=== PATIENT | female | born 1970 ===

== ENCOUNTER 2018-07-01 16:34 | Emergency (ER) | payer OTHER ==
[2018-07-01 17:00] VITALS: BP 121/82; PULSE 81; RESP 18; TEMP 97.8; O2SAT 100
[2018-07-01] MEDS ORDERED: Tetanus/Diphtheria Toxoids 0.5 ml Syringe IM ONE ×2 (17:26→19:07)
[2018-07-01] MEDS ORDERED: Lidocaine 1% Inj (20ml) INFIL STA (17:27)
[2018-07-01] MEDS ORDERED: Lidocaine Hydrochloride 5 ML INJ ONE (18:07)
[2018-07-01] MEDS ORDERED: Bacitracin 500 Units/gm Oint Foilpak UD ONE (18:30)
--- NOTE | 2018-07-01 18:47 | C.PDOC ---
History Of Present Illness 48 year old female presents to the ED for evaluation of a laceration to her left hand which she sustained at 1200 today. Patient states she was at work when she accidentally cut herself with a can. Patient states she is not up-to-date with Tetanus immunization. Patient denies sensory changes at this time. Time Seen by Provider: 07/01/18 17:16 Chief Complaint (Nursing): Abnormal Skin Integrity History Per: Patient History/Exam Limitations: no limitations Onset/Duration Of Symptoms: Hrs Current Symptoms Are (Timing): Still Present Location Of Injury: Left: Hand Quality Of Symptoms: Painful Additional History Per: Patient Past Medical History Reviewed: Historical Data, Nursing Documentation, Vital Signs Vital Signs: Last Vital Signs Temp 97.8 F 07/01/18 16:56 Pulse 81 07/01/18 16:56 Resp 18 07/01/18 16:56 BP 121/82 07/01/18 16:56 Pulse Ox 100 07/01/18 16:56 - Medical History PMH: No Chronic Diseases Surgical History: No Surg Hx Family History: States: Unknown Family Hx - Social History Hx Alcohol Use: No Hx Substance Use: No - Immunization History Hx Tetanus Toxoid Vaccination: No Hx Influenza Vaccination: No Hx Pneumococcal Vaccination: No Review Of Systems Skin: Positive for: Other (laceration to left hand) Neurological: Negative for: Other (sensory changes ) Physical Exam - Physical Exam Appears: Non-toxic, No Acute Distress Skin: Normal Color, Warm, Dry, Other (1.5cm laceration to interdigitary space between left first and second digits. no active bleeding ) Extremity: Normal ROM (all digits of left hand ), Capillary Refill (less than 2 seconds ) Neurological/Psych: Oriented x3, Normal Speech, Normal Cognition, Normal Sensation ED Course And Treatment O2 Sat by Pulse Oximetry: 100 Progress Note: Patient given Tylenol PO and Tetanus IM. On reassessment, patient is resting comfortably, showing no signs of distress and is stable for discharge. Patient is given wound care instructions and advised to return for suture removal in 7 days. Laceration - Laceration Repair LEFT HAND Wound Length (In cm): 1.5 Description Of Wound: Linear Wound Cleansed With: Betadine, Sterile Saline Anesthesia: Lidocaine 1% (APPROX 3ML) Wound Examination: Irrigated With Saline, No FB With Wound Exploration Wound Closure: Suture (THREE 2.0 ETHILON SIMPLE INTERRUPTED) Suture Technique And Material Used: Interrupted, Nylon Wound Complexity: Simple Disposition Counseled Patient/Family Regarding: Diagnosis, Need For Followup - Disposition Referrals: [facility] [Outside] Disposition: HOME/ ROUTINE Disposition Time: 18:40 Condition: STABLE Additional Instructions: SUTURE REMOVAL IN 7 DAYS KEEP AREA COVERED, CLEAN AND DRY FOR 24 HOURS RETURN TO ER IF YOU DEVELOP FEVER, BLEEDING DISCHARGE OR OTHER CONCERNING SYMPTOMS Instructions: Laceration Repair With Stitches (DC) Forms: [employer] (Thai) Print Language: AZERI - Clinical Impression Clinical Impression: Laceration of left hand - Scribe Statement The provider has reviewed the documentation as recorded by the Scribe (Noris Irizarry) Provider Attestation: All medical record entries made by the Scribe were at my direction and personally dictated by me. I have reviewed the chart and agree that the record accurately reflects my personal performance of the history, physical exam, medical decision making, and the department course for this patient. I have also personally directed, reviewed, and agree with the discharge instructions and disposition.
== END 2018-07-01 19:20 | disposition home or self-care (01) ==
LOC: C.ER 16:34
DX: S61.412A Laceration without foreign body of left hand, initial encounter (principal); W26.8XXA Contact with other sharp object(s), not elsewhere classified, initial encounter; Z23 Encounter for immunization

== ENCOUNTER 2018-07-12 17:13 | Emergency (ER) | payer SELFPAY, OTHER | END 2018-07-12 17:55 | disposition home or self-care (01) | LOC: C.ER 17:13 ==

== ENCOUNTER 2018-08-19 18:26 | Emergency (ER) | payer SELFPAY ==
[2018-08-19 18:34] VITALS: BMI 22.4
[2018-08-19 18:37] VITALS: BP 134/84; PULSE 76; TEMP 98.2; O2SAT 99
--- NOTE | 2018-08-19 18:55 | C.PDOC ---
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 Patient was carrying a box when she missed a step and fell down approx 5 stairs, hitting the back of her head. Denies any LOC. Patient is now complaining of left forearm pain, neck pain, and left-sided facial pain. She denies any dizziness, severe headache, visual changes, nausea, vomiting, chest pain, SOB, or back pain. No other injury. She denies hx of blood thinner use. - HPI Time Seen by Provider: 08/19/18 18:47 Chief Complaint (Nursing): Trauma History Per: Patient History/Exam Limitations: no limitations Onset/Duration Of Symptoms: Mins Injury Occurred (Timing): Just Before Arrival Location Of Injury: Left: Face, Forearm, Posterior: Neck Severity: Moderate Additional History Per: EMS, Family Past Medical History Reviewed: Historical Data, Nursing Documentation, Vital Signs Vital Signs: Last Vital Signs Temp 98.2 F 08/19/18 18:34 Pulse 76 08/19/18 18:34 Resp 18 08/19/18 18:34 BP 134/84 08/19/18 18:34 Pulse Ox 99 08/19/18 18:34 - Medical History PMH: No Chronic Diseases Surgical History: No Surg Hx Family History: States: Unknown Family Hx - Social History Hx Tobacco Use: No Hx Alcohol Use: No Hx Substance Use: No - Immunization History Hx Tetanus Toxoid Vaccination: No Hx Influenza Vaccination: No Hx Pneumococcal Vaccination: No Review Of Systems Except As Marked, All Systems Reviewed And Found Negative. Constitutional: Negative for: Fever Eyes: Negative for: Vision Change ENT: Negative for: Nose Pain Cardiovascular: Negative for: Chest Pain, Palpitations, Light Headedness Respiratory: Negative for: Cough, Shortness of Breath, Hemoptysis Gastrointestinal: Negative for: Nausea, Vomiting, Abdominal Pain Musculoskeletal: Positive for: Neck Pain, Arm Pain (Left forearm), Other (Left facial pain). Negative for: Shoulder Pain, Back Pain, Leg Pain Skin: Positive for: Bruising. Negative for: Lesions Neurological: Negative for: Weakness, Numbness, Confusion, Headache, Dizziness Physical Exam - Physical Exam Appears: Non-toxic, No Acute Distress Skin: Warm, Dry, No Rash Head: Normacephalic, Tenderness (mild over left zygoma), Swelling (mild over left zygoma), No Laceration Eye(s): bilateral: Normal Inspection, PERRL, EOMI Nose: Normal Oral Mucosa: Moist Neck: Normal ROM, Trachea Midline, Midline Cervical Tenderness (mild c-spine tenderness), Paracervical Tenderness (left), No Step Off Deformity, Supple Chest: Symmetrical, No Ecchymosis Cardiovascular: Rhythm Regular, No Murmur Respiratory: Normal Breath Sounds, No Accessory Muscle Use, Other (No respiratory distress) Gastrointestinal/Abdominal: Soft, No Tenderness, No Distention Back: Normal Inspection, No Vertebral Tenderness, No Decreased ROM, No Paraspinal Tenderness, No Other (no bruising) Extremity: No Normal ROM (unable to pronate or supinate left arm), Tenderness (over dorsal medial left forearm), Capillary Refill (<2s), Deformity (+ obvious deformity to left forearm), Swelling (left mid forearm), Other (Ecchymosis to left forearm, over dorsal medial aspect; Neurovascularly intact; No lacerations or abrasions to extremities) Pulses: Left Radial: Normal, Right Radial: Normal Neurological/Psych: Oriented x3, Normal Speech, Normal Cognition, Normal Cranial Nerves (2-12 grossly intact), Normal Motor, Normal Sensation Gait: Steady ED Course And Treatment - Laboratory Results Urine POC: Negative O2 Sat by Pulse Oximetry: 99 (RA) Pulse Ox Interpretation: Normal - Other Rad L Elbow X-Ray X-Ray: Read By Radiologist Interpretation: Name:DAVID GALLEGOS Exam Date:Aug 19, 2018 7:03:47 PM Cary JACOME Modality Type:CR\SD\NV. Description:CR - ELBOW COMPLETE 3 VIEWS. Gender:F Laterality:Left. :71 Referring Physician:HORACE JOSEPH PA-C. EXAM: CR left elbow, 3 View. CLINICAL HISTORY: PATIENT FELL. COMPARISON: None provided. FINDINGS: BONES: No acute fracture or aggressive appearing osseous lesion. JOINTS: The joint spaces appear within normal limits. No dislocation. No radiographic evidence of a joint effusion. SOFT TISSUES: The soft tissues are unremarkable. IMPRESSION: No acute osseous abnormality. . Electronically signed on Aug 19, 2018 8:11:13 PM EST by: Andrew Chanel M.D., ISABELA Certified By ABR & CBCCT. Fellowship Trained MRI and CT Specialist L Wrist X-Ray X-Ray: Read By Radiologist Interpretation: Name:DAVDI GALLEGOS Exam Date:Aug 19, 2018 7:03:17 PM EST. Modality Type:CR\SD\NV. Description:CR - WRIST COMPLETE 3/VIEWS. Gender:F Laterality:Left. :71 Referring Physician:HORACE JOSEPH PA-C. EXAM: CR left Wrist, 3 View. CLINICAL HISTORY: PATIENT FELL. COMPARISON: None provided. FINDINGS: BONES: An oblique fracture is identified in the distal ulnar diaphysis. There is slight lateral displacement of the distal fracture fragment by an estimated 3.5 mm. No aggressive appearing osseous lesion. JOINTS: No dislocation. The carpal bones demonstrate normal alignment. SOFT TISSUES: The soft tissues are unremarkable. IMPRESSION: 1. Acute oblique fracture involving the distal one third portion of the ulnar diaphysis as described above. . Electronically signed on Aug 19, 2018 8:11:22 PM EST by: Andrew Chanel M.D., MBA Certified By ABR & CBCCT. Fellowship Trained MRI and CT Specialist L Forearm X-Ray X-Ray: Read By Radiologist Interpretation: Name:DAVID GALLEGOS Exam Date:Aug 19, 2018 7:03:35 PM EST. Modality Type:CR\SD\NV. Description:CR - FOREARM 2/VIEWS. Gender:F Laterality:Left. :71 Referring Physician:HORACE JOSEPH PA-C. EXAM: CR left Forearm, 2 View. CLINICAL HISTORY: PATIENT FELL. [facility] [place]. COMPARISON: None provided. FINDINGS: BONES: Displaced fracture of the distal ulna diaphysis is noted. JOINTS: No dislocation. The joint spaces are normal. SOFT TISSUES: The soft tissues are unremarkable. IMPRESSION: Displaced fracture of the distal ulna diaphysis is noted. . Electronically signed on Aug 19, 2018 9:12:18 PM EST by: Andrew Chanel M.D., MBA Certified By GLADYS & CBCCT. Fellowship Trained MRI and CT Specialist - CT Scan/US Head CT Other Rad Studies (CT/US): Read By Radiologist, Radiology Report Reviewed CT/US Interpretation: Name:EL HERNANDEZ Exam Date:Aug 19, 2018 7:43:59 PM EST. Modality Type:CT. Description:CT - BRAIN WITH CORONAL AND SAGITTAL MPRS. Gender:F Laterality:Not applicable. :71 Referring Physician:HORACE JOSEPH PA-C. EXAM: CT Head without Intravenous Contrast. CLINICAL HISTORY: Head injury. s/p fall. TECHNIQUE: Axial computed tomography images of the head/brain without intravenous contrast. 0.00 mGy-cm. COMPARISON: None provided. FINDINGS: BRAIN. No acute intraparenchymal hemorrhage. No mass lesion. No CT evidence for acute territorial infarct. No midline shift or extra-axial collections. VENTRICLES: No hydrocephalus. ORBITS: The orbits are unremarkable. SINUSES AND MASTOIDS: A 1.5 x 0.6 cm mucous retention cyst or polyp is seen along the medial wall of the left maxillary sinus. The remaining paranasal sinuses and mastoid air cells are clear. BONES: No fracture. SOFT TISSUES: Unremarkable. IMPRESSION: 1. No acute intracranial abnormality. 2. Mucous retention cyst or polyp in the medial wall of the left maxillary sinus. . Electronically signed on Aug 19, 2018 8:41:49 PM EST by: Andrew Chanel M.D., ISABELA Certified By ABR & CBCCT. Fellowship Trained MRI and CT Specialist Maxillofacial CT Other Rad Studies (CT/US): Read By Radiologist, Radiology Report Reviewed CT/US Interpretation: Name:EL HERNANDEZ Exam Date:Aug 19, 2018 7:46:38 PM EST. Modality Type:CT. Description:CT - FACIAL BONES. Gender:F Laterality:Not applicable. :71 Referring Physician:HORACE JOSEPH PA-C. EXAM: CT Maxillofacial without Intravenous Contrast. CLINICAL HISTORY: Facial injury. TECHNIQUE: Axial computed tomography images of the face without intravenous contrast. Sagittal and coronal reformatted images were generated. 0.00 mGy-cm. CONTRAST: Without. COMPARISON: None provided. FINDINGS: BONES: No acute fracture or aggressive appearing osseous lesion. The mandible is intact. SOFT TISSUES: The soft tissues are unremarkable. SINUSES: A mucous retention cyst versus localized mucoperiosteal thickening is noted along the medial wall of the left maxillary sinus. The remaining sinuses are clear. ORBITS: The orbits are normal. No retrobulbar hematoma or mass. IMPRESSION: 1. A mucous retention cyst or mucoperiosteal thickening is noted along the medial wall of the left maxillary sinus. 2. Otherwise, unremarkable maxillofacial CT. . Electronically signed on Aug 19, 2018 8:41:04 PM EST by: Andrew Chanel M.D., ISABELA Certified By ABR & CBCCT. Fellowship Trained MRI and CT Specialist C-spine CT Other Rad Studies (CT/US): Read By Radiologist, Radiology Report Reviewed CT/US Interpretation: Name:EL HERNANDEZ Exam Date:Aug 19, 2018 7:49:05 PM EST. Modality Type:CT. Description:CT - CERVICAL SPINE WITH CORONAL AND SAGITTAL MPRS. Gender:F Laterality:Not applicable. :71 Referring Physician:HORACE JOSEPH PA-C. EXAM: CT Cervical Spine Without IV contrast. CLINICAL HISTORY: Neck injury. s/p fall. TECHNIQUE: Axial computed tomography images of the cervical spine without intravenous contrast. Sagittal and coronal reformatted images were generated. COMPARISON: None provided. FINDINGS: ALIGNMENT: Bony alignment is anatomic. DEGENERATIVE CHANGES: No significant canal stenosis or neural foraminal narrowing evident. SOFT TISSUES: The prevertebral soft tissues are within normal limits. BONES: No acute fracture or aggressive appearing osseous lesion. Very minimal marginal osteophytic spurring arises from C4, C5 and C6. IMPRESSION: No acute cervical spine abnormality. . Electronically signed on Aug 19, 2018 8:38:55 PM EST by: Andrew Chanel M.D., ISABELA Certified By ABR & CBCCT. Fellowship Trained MRI and CT Specialist Medical Decision Making Medical Decision Making: Hard c-collar placed by nursing on arrival to the ED. Impression: neck pain, facial pain, deformity to left arm, s/p fall Plan: - CT Head - CT C-spine - CT Maxillofacial - Left elbow x-ray - Left forearm x-ray - Left wrist x-ray - 650 mg PO Tylenol - Reassess Progress: X-rays reviewed, showing minimally displaced left mid-shaft ulnar fracture. Still pending CT. Imaging sent to [facility] for official read. 19:37 Case discussed with ortho on-call, Dr. Ortiz, who advised placing posterior long arm splint and outpatient followup for further management. Posterior long arm splint applied to left arm by me. Sling provided. Post-Procedure: NVI, unchanged from pre-procedure. Pt able to move all digits without difficulty 20:46 CT scans are negative, including c-spine. C-collar removed. Results of all studies discussed with patient. Advised orthopedic followup in 1- 2 days. Pt verbalized understanding. Given prescription for ibuprofen and percocet for pain. Head injury observation instructions discussed with patient and family. Diagnostic testing results and plan of care discussed with patient. Strict instructions given regarding prescription use, importance of followup, and signs/symptoms to return to ER including numbness, weakness, paresthesia, or any other new/worsening symptoms. Pt verbalized understanding of discussion. Patient is A&Ox3, ambulating with steady gait, with vital signs stable for discharge. Disposition - Disposition Referrals: [facility] [Outside] [facility] [place] [Outside] Gil Ortiz III, MD [Staff Provider] - Disposition: HOME/ ROUTINE Disposition Time: 21:00 Condition: STABLE Additional Instructions: Ibuprofen every 8 hours with food as needed for pain Percocet every 6 hours as needed for severe pain Keep splint on and dry until orthopedic followup Followup with orthopedic clinic within 2 days Followup with primary doctor within 2 days Return to ER with any new/worsening symptoms Prescriptions: Ibuprofen [Motrin Tab] 600 mg PO Q8 PRN #30 tab PRN Reason: Pain, Moderate (4-7) oxyCODONE/Acetaminophen [Percocet 5/325 mg Tab] 1 tab PO Q6H PRN #16 tab PRN Reason: Pain, Severe (8-10) Instructions: Closed Head Injury (DC), Forearm Fracture (DC), Head Injury Observation (DC) Forms: General Discharge Instructions, [facility] (Croatian), Work Excuse - Clinical Impression Clinical Impression: Fall down stairs, Closed head injury, Ulnar shaft fracture - PA / CONSTRUCTION ACCOUNTANT / Resident Statement MD/DO has reviewed & agrees with the documentation as recorded. - Scribe Statement The provider has reviewed the documentation as recorded by the Scribcary Tucker All medical record entries made by the Scribe were at my direction and personally dictated by me. I have reviewed the chart and agree that the record accurately reflects my personal performance of the history, physical exam, medical decision making, and the department course for this patient. I have also personally directed, reviewed, and agree with the discharge instructions and di sposition.
[2018-08-19 21:21] VITALS: RESP 20
--- NOTE | 2018-08-20 07:59 | RAD ---
Date of service: 08/19/2018 PROCEDURE: Left Wrist Radiographs. HISTORY: fall down stairs, left arm pain COMPARISON: None. FINDINGS: BONES: a distal ulnar shaft fracture with 2 mm radial and volar displacement of the distal fracture fragment is present. JOINTS: Normal. No dislocation. SOFT TISSUES: Normal. OTHER FINDINGS: None. IMPRESSION: Distal ulnar shaft fracture with 2 mm radial and volar displacement of the distal fracture fragment
--- NOTE | 2018-08-20 08:05 | RAD ---
Date of service: 08/19/2018 PROCEDURE: Radiographs of the Left Forearm HISTORY: fall down stairs, left arm pain COMPARISON: None available. TECHNIQUE: Frontal and lateral views obtained. FINDINGS: BONES: A distal ulnar diaphyseal fracture with approximately 2 mm volar displacement of the distal. Fracture fragment is present JOINT SPACES: Unremarkable. OTHER FINDINGS: None. IMPRESSION: Distal ulnar diaphyseal displaced fracture
--- NOTE | 2018-08-20 08:07 | RAD ---
Date of service: 08/19/2018 PROCEDURE: Radiographs of the left elbow. HISTORY: fall down stairs, left arm pain COMPARISON: No prior. FINDINGS: BONES: Normal. No fracture. JOINTS: Normal. No osteoarthritis. SOFT TISSUES: Normal. JOINT EFFUSION: None. OTHER FINDINGS: None IMPRESSION: Unremarkable radiographs of the left elbow.
--- NOTE | 2018-08-20 08:18 | CT ---
Date of service: 08/19/2018 PROCEDURE: CT HEAD WITHOUT CONTRAST. HISTORY: fall down stairs, head injury COMPARISON: None available. TECHNIQUE: Axial computed tomography images were obtained through the head/brain without intravenous contrast. Radiation dose: Total exam DLP = 993.21 mGy-cm. This CT exam was performed using one or more of the following dose reduction techniques: Automated exposure control, adjustment of the mA and/or kV according to patient size, and/or use of iterative reconstruction technique. FINDINGS: HEMORRHAGE: No intracranial hemorrhage. BRAIN: No mass effect or edema. No atrophy or chronic microvascular ischemic changes. VENTRICLES: Unremarkable. No hydrocephalus. CALVARIUM: Unremarkable. PARANASAL SINUSES: Mild mucosal thickening of the medial aspect of the left maxillary sinus. 1.5 x 0.6 centimeter mucous retention cyst and or polyp is seen along the medial wall of the left maxillary sinus. MASTOID AIR CELLS: Partial sclerosis of the right mastoid air cells. OTHER FINDINGS: None. IMPRESSION: No acute intracranial abnormality. Mild mucosal thickening of the medial aspect of the left maxillary sinus. 1.5 x 0.6 centimeter mucous retention cyst and or polyp is seen along the medial wall of the left maxillary sinus. If symptoms persist, consider correlation with MRI. A preliminary report was generated at 8:41 p.m. on 08/19/[address] Andrew Chanel from [employer].
--- NOTE | 2018-08-20 08:55 | CT ---
CT cervical spine HISTORY: Injury. Neck pain. COMPARISON: None available. TECHNIQUE: Multiple contiguous axial images were performed through the cervical spine without the use of intravenous contrast. Subsequently, sagittal and coronal reformatted images were obtained. This CT exam was performed using one or more of the following dose reduction techniques: Automated exposure control, adjustment of the mA and/or kV according to patient size, and/or use of iterative reconstruction technique. Findings: Mild inferior endplate concavities of the C3, C4, C5, and C6 vertebral bodies. Mild anterior osteophytosis at the C4-5 and C5-6 levels. Mild patchy sclerosis seen within the cervical spine. No gross prevertebral soft tissue swelling. No evidence of acute displaced fracture or dislocation. Evaluation for disc disease is limited on CT scan. Correlation with MRI may be helpful if clinically indicated. Incidentally noted is a mucosal retention cyst and or polyp in the left maxillary sinus. Partial opacification of the right mastoid air cells. Impression: Degenerative changes. If pain persists, consider correlation with MRI. A preliminary report was generated at 8:38 p.m. on 08/19/[address] Andrew Chanel from [employer].
--- NOTE | 2018-08-20 09:09 | CT ---
CT maxillofacial HISTORY: Fall downstairs. COMPARISON: None available. TECHNIQUE: Multiple contiguous axial images were performed through the maxillofacial region without the use of intravenous contrast. Subsequently, sagittal and coronal reformatted images were obtained. Findings: 1.6 x 0.5 mucosal retention cyst and or polyp seen emanating from the medial wall of left maxillary sinus. Mild mucosal thickening of the ethmoid air cells. Remainder of the paranasal sinuses appear preserved. Partial opacification of the right mastoid air cells. Few dental caries are noted most prominent at the posterior right maxilla. This is best seen on series 602, images 107 and 108. Clinical correlation. Rightward nasal septal deviation. Mucosal thickening and hypertrophy of the middle and inferior nasal turbinates. No evidence of acute displaced fracture or dislocation. Orbital globes are grossly preserved. Impression: Negative acute. Additional findings as above. A preliminary report was generated at 8:41 p.m. on 08/19/[address] Andrew Chanel from [employer].
== END 2018-08-19 21:20 | disposition home or self-care (01) ==
LOC: C.ER 18:26
DX: S09.90XA Unspecified injury of head, initial encounter (principal); S52.202A Unspecified fracture of shaft of left ulna, initial encounter for closed fracture; W10.9XXA Fall (on) (from) unspecified stairs and steps, initial encounter

== ENCOUNTER → 2018-10-27 | Outpatient (CLI) | payer OTHER | LOC: C.CTH 10:48 | DX: S52.232A Displaced oblique fracture of shaft of left ulna, initial encounter for closed fracture (principal) ==